=== PATIENT | female | born 1990 | race Caucasian/White ===

== ENCOUNTER 2021-01-26 12:05 | Emergency (ER) | payer MEDICAID ==
[~2021-01-26] VITALS: Ht 175.3 cm; Wt 68.0 kg
[2021-01-26 14:00] LABS: BASOPHILS # (AUTO) 0.1 /CMM (0.0-0.2); BASOPHILS % (AUTO) 0.6 % (0.0-2.0); EOSINOPHILS % (AUTO) 0.8 % (0.0-6.0); HEMATOCRIT 42 % (33-45); LYMPHOCYTES # (AUTO) 1.7 /CMM (0.8-4.8); LYMPHOCYTES % (AUTO) 19.5 % (20.0-44.0); MEAN CORPUSCULAR HGB CONC 34 g/dl (31.0-36.0); MEAN CORPUSCULAR VOLUME 94 fL (82-100); MONOCYTES # (AUTO) 0.5 /CMM (0.1-1.30); MONOCYTES % (AUTO) 5.1 % (2.0-12.0); NEUTROPHILS # (AUTO) 6.6 /CMM (1.8-8.9); PLATELET COUNT (AUTO) 268 /CMM (150-450); RED BLOOD CELL COUNT(AUTO) 4.45 MIL/uL (4.0-5.2); WHITE BLOOD COUNT (AUTO) 8.9 K/uL (4.3-11.0)
[2021-01-26 14:10] LABS: CALCIUM, SERUM 8.8 mg/dL (8.5-10.1); CARBON DIOXIDE 27 mmol/L (21-32); CHLORIDE 101 mmol/L (98-107); CREATININE 0.6 mg/dL (0.6-1.3); GLUCOSE 89 mg/dL (74-106); POTASSIUM 4.1 mmol/L (3.5-5.1); SODIUM SERUM 137 mmol/L (136-145); UREA NITROGEN, BLOOD 16 mg/dL (7-18)
[2021-01-26 14:13] LABS: BILIRUBIN,URINE Negative (NEGATIVE); COLOR,URINE YELLOW (YELLOW); LEUKOCYTE ESTERASE ,URINE Small (NEGATIVE); NITRITE, URINE Negative (NEGATIVE); PH,URINE 5.5 (5.0-8.0); PROTEIN,URINE Negative (NEGATIVE); UGLUCOSE Negative (NEGATIVE); UROBILINOGEN,URINE 0.2 EU/dL (0.2)
[2021-01-26 14:17] LABS: ACETAMINOPHEN 0 ug/ml (10-30); ALANINE AMINOTRANSFERASE 15 U/L (12-78); ALBUMIN 3.9 g/dL (3.4-5.0); ALCOHOL, BLOOD < 3 mg/dL (0-0); ALKALINE PHOSPHATASE 57 U/L (46-116); ASPARTATE AMINOTRANSFERASE 14 U/L (15-37); BILIRUBIN,DIRECT 0.1 mg/dL (0.0-0.2); BILIRUBIN,TOTAL 0.3 mg/dL (0.2-1.0); TOTAL PROTEIN, SERUM 7.5 g/dL (6.4-8.2)
[2021-01-26 14:20] LABS: BACTERIA,URINE Moderate /HPF (None Seen); MUCUS,URINE Few /LPF (None Seen); SQUAMOUS EPITHELIAL CELL,UR Few /HPF (None Seen)
[2021-01-26] MEDS ORDERED: CEPHALEXIN MONOHYDRATE 500 MG CAPSULE PO ONE ×2 (15:00→15:21)
--- NOTE | 2021-01-26 15:30 | NUR ---
covid swab done and sent to the lab
[2021-01-26] MEDS ORDERED: LORAZEPAM 1 MG TABLET PO ONE (18:30)
[2021-01-26] MEDS ORDERED: LORAZEPAM 1 MG TABLET ONE (18:41)
[2021-01-26 19:06] VITALS: BP 127/85
[2021-01-26] MEDS ORDERED: CEPH500C2 PO (19:06)
--- NOTE | 2021-01-26 19:06 | NUR ---
Patient discharged to home in stable condition. Written and verbal after care instructions given. Patient verbalizes understanding of instruction. The patient left ER in stable condition accompanied by her uncle.
== END 2021-01-26 19:06 | disposition home or self-care (01) ==
LOC: ER 12:08
DX: R45.851 Suicidal ideations (principal); F31.9 Bipolar disorder, unspecified; N39.0 Urinary tract infection, site not specified; F41.9 Anxiety disorder, unspecified; Z91.040 Latex allergy status; J45.909 Unspecified asthma, uncomplicated; Z59.0 Homelessness
CPT/HCPCS: 36415; 80048; 80076; 80299; 80307; 80320; 81001; 84703; 85025; 87086; 87426; 99285; C9803; G0480

== ENCOUNTER 2021-02-10 17:45 | Emergency (ER) | payer BC, MEDICAID ==
[~2021-02-10] VITALS: Ht 175.3 cm; Wt 63.5 kg
[~2021-02-10 17:45] MED LIST: CEPH500C2 PO
--- NOTE | 2021-02-10 18:32 | NUR ---
BIB [facility],C/O FEELING SUICIDAL BY CUTTING HERSELF. PT AAOX4, VSS. RR EVEN & UNLABORED. DENIES CP, SOB, DIZZINESS, N/V AT THIS TIME. DR. NOYOLA AT BS FOR EVAL. SITTER AT BS & WILL CONT TO MONITOR.
[2021-02-10 18:52] LABS: BASOPHILS # (AUTO) 0.1 /CMM (0.0-0.2); BASOPHILS % (AUTO) 0.7 % (0.0-2.0); EOSINOPHILS % (AUTO) 0.9 % (0.0-6.0); HEMATOCRIT 41 % (33-45); HEMOGLOBIN 13.6 g/dL (11.5-14.8); LYMPHOCYTES # (AUTO) 2.5 /CMM (0.8-4.8); LYMPHOCYTES % (AUTO) 27.8 % (20.0-44.0); MEAN CORPUSCULAR HGB CONC 34 g/dl (31.0-36.0); MEAN CORPUSCULAR VOLUME 91 fL (82-100); MONOCYTES # (AUTO) 0.6 /CMM (0.1-1.30); MONOCYTES % (AUTO) 6.6 % (2.0-12.0); NEUTROPHILS # (AUTO) 5.7 /CMM (1.8-8.9); PLATELET COUNT (AUTO) 317 /CMM (150-450); RED BLOOD CELL COUNT(AUTO) 4.44 MIL/uL (4.0-5.2); WHITE BLOOD COUNT (AUTO) 8.9 K/uL (4.3-11.0)
[2021-02-10 19:04] LABS: BILIRUBIN,URINE Negative (NEGATIVE); COLOR,URINE YELLOW (YELLOW); LEUKOCYTE ESTERASE ,URINE Small (NEGATIVE); NITRITE, URINE Negative (NEGATIVE); PROTEIN,URINE Negative (NEGATIVE); UGLUCOSE Negative (NEGATIVE); UROBILINOGEN,URINE 0.2 EU/dL (0.2)
[2021-02-10 19:08] LABS: CALCIUM, SERUM 9.1 mg/dL (8.5-10.1); CARBON DIOXIDE 26 mmol/L (21-32); CHLORIDE 102 mmol/L (98-107); CREATININE 0.6 mg/dL (0.6-1.3); GLUCOSE 102 mg/dL (74-106); POTASSIUM 4.1 mmol/L (3.5-5.1); SODIUM SERUM 138 mmol/L (136-145); UREA NITROGEN, BLOOD 22 mg/dL (7-18)
[2021-02-10 19:08] LABS: BACTERIA,URINE 1+ /HPF (None Seen); RBC,URINE NONE SEEN /HPF (0-2); SQUAMOUS EPITHELIAL CELL,UR Few /HPF (None Seen)
[2021-02-10 19:13] LABS: ACETAMINOPHEN < 2 ug/ml (10-30); ALANINE AMINOTRANSFERASE 18 U/L (12-78); ALBUMIN 4.1 g/dL (3.4-5.0); ALCOHOL, BLOOD < 3 mg/dL (0-0); ALKALINE PHOSPHATASE 54 U/L (46-116); ASPARTATE AMINOTRANSFERASE 15 U/L (15-37); BILIRUBIN,DIRECT 0.1 mg/dL (0.0-0.2); BILIRUBIN,TOTAL 0.2 mg/dL (0.2-1.0); TOTAL PROTEIN, SERUM 7.9 g/dL (6.4-8.2)
--- NOTE | 2021-02-10 19:19 | NUR ---
SOPHIAID SWABBED, SENT TO LAB.
--- NOTE | 2021-02-10 19:51 | NUR ---
[place] ROUGH ROUNDER SPEAKING TO PTShahbaz
[2021-02-10] MEDS ORDERED: OLANZAPINE 5 MG TABLET PO ONE (20:00)
[2021-02-10] MEDS ORDERED: OLANZAPINE 5 MG TABLET ONE (20:03)
--- NOTE | 2021-02-10 20:14 | NUR ---
CALLED POISON CONTROL: SPOKE TO PETER RECOMMENDATION: WATCH FOR SEDATION/TACHY/ANTICHOLINERGIC EFFECTS ORDER EKG, ASA AND TYLENOL LEVEL DR. NOYOLA MADE AWARE
[2021-02-10] MEDS ORDERED: LORAZEPAM 1 MG TABLET ONE (21:29)
[2021-02-10] MEDS ORDERED: LORAZEPAM 1 MG TABLET PO ONE (21:30)
--- NOTE | 2021-02-10 23:23 | NUR ---
RESTING COMFORTABLY. VSS.
--- NOTE | 2021-02-11 01:27 | NUR ---
PT RESTING IN BED, VSS.
--- NOTE | 2021-02-11 02:31 | NUR ---
PT AMBULATED TO THE NURSING STATION, ASKED FOR FOOD.
--- NOTE | 2021-02-11 03:01 | NUR ---
PT PROVIDED WITH FOOD. VSS.
--- NOTE | 2021-02-11 06:44 | NUR ---
PT ASLEEP, VSS.
--- NOTE | 2021-02-11 09:43 | NUR ---
PT AAOX4, VSS. RR EVEN & UNLABORED. CALM & COOPERATIVE. PT EATING BREAKFAST, NAD NOTED AT THIS TIME. WILL CONT TO MONITOR. SITTER AT BS.
--- NOTE | 2021-02-11 09:49 | NUR ---
PT TOOK OWN MEDS (ABILIFY & ZOLOFT), OK'D BY DR. CARPENTER.
[2021-02-11] MEDS ORDERED: HYDR-500 PO (10:09)
[2021-02-11] MEDS ORDERED: HYDR50TA61 PO (10:09)
[2021-02-11] MEDS ORDERED: SERT25TA PO (10:09)
[2021-02-11] MEDS ORDERED: ARIP10TA9 PO (10:09)
[2021-02-11] MEDS ORDERED: SULF1TAB48 PO (10:21)
--- NOTE | 2021-02-11 11:02 | NUR ---
SPOKE TO YAN, HUMAN RESOURCES RECEPTIONIST & STS THAT SHE WILL CALL [facility] FOR ADMISSION.
[2021-02-11] MEDS ORDERED: LORAZEPAM 1 MG TABLET PO ONE (12:00)
[2021-02-11] MEDS ORDERED: LORAZEPAM 1 MG TABLET ONE (13:24)
--- NOTE | 2021-02-11 13:30 | NUR ---
MEDICATED FOR ANXIETY, PT CANDACE WELL. SITTER AT BS
--- NOTE | 2021-02-11 19:11 | NUR ---
PT AAOX4, VSS. RR EVEN & UNLABORED. CALM & COOPERATIVE. SITTER AT BEDSIDE FOR SAFETY. WILL CONTINUE TO MONITOR PT
[2021-02-11] MEDS ORDERED: ZIPRASIDONE 20 MG CAPSULE PO SCH (20:30)
[2021-02-11] MEDS ORDERED: SULFAMETH/TRIMETH 800/160 MG 1 UDTAB TABLET ONE (20:52)
[2021-02-11] MEDS ORDERED: ZIPRASIDONE 20 MG CAPSULE ONE (20:57)
[2021-02-11] MEDS ORDERED: SULFAMETH/TRIMETH 800/160 MG 1 UDTAB TABLET PO ONE (21:00)
--- NOTE | 2021-02-12 02:15 | NUR ---
PT RESTING COMFORTABLY IN BED. VSS. WILL CONTINUE TO MONITOR PT
--- NOTE | 2021-02-12 04:40 | NUR ---
SITTER AT BEDSIDE FOR SAFETY. PT RESTING COMFORTABLY IN BED. VSS. WILL CONTINUE TO MONITOR PT
[2021-02-12 07:51] VITALS: BP 119/58
--- NOTE | 2021-02-12 07:52 | NUR ---
ASSESSED PT ON BED AWAKE AND ALERT, NOT IN RESPIRATORY DISTRESS, V/S STABLE, KEPT RESTED AND COMFORTABLE. AWAITING INFO FOR PSYCH TRANSFER.
--- NOTE | 2021-02-12 08:51 | NUR ---
AT BEDSIDE FOR EVAL.
[2021-02-12] MEDS ORDERED: BENZTROPINE MESYLATE (1 MG) 1 MG TABLET PO SCH (09:30)
[2021-02-12] MEDS ORDERED: BENZTROPINE MESYLATE (1 MG) 1 MG TABLET ONE (09:37)
[2021-02-12] MEDS ORDERED: risperiDONE 1 MG TABLET ONE ×2 (09:37→10:14)
[2021-02-12] MEDS: LITHIUM CARBONATE (300 MG CAP) 300 MG CAPSULE PO SCH ×2 (09:48→13:10)
[2021-02-12] MEDS: risperiDONE 0.25 MG TABLET PO SCH ×2 (09:48→13:10)
--- NOTE | 2021-02-12 11:55 | NUR ---
[place] CRISIS PATHOLOGY ASSISTANT AT BEDSIDE FOR EVAL.
--- NOTE | 2021-02-12 13:02 | NUR ---
Salesperson [employer] note: DAVID faxed clinicals to epic application coordinator, Zen [phone] who stated that he may be able to find a bed for the patient at [facility]-[address] [id number]; and provided DAVID with contact information for Shefali who would be verifying if the patient qualifies for this facility. DAVID spoke to Shefali who asked DAVID about the patient's insurance coverage and stated that she will contact this SW shortly with an update. DAVID will continue to follow up.
--- NOTE | 2021-02-12 13:19 | NUR ---
[facility] intake accepted at [facility]ash[facility] [address] [address] [phone] [address].
--- NOTE | 2021-02-12 13:32 | NUR ---
TRANSPORT CALLED [facility] ETA IS 90 MINS AT 1500 PER GRACE.
--- NOTE | 2021-02-12 15:32 | NUR ---
REPORT GIVEN TO TECHNOLOGY STRATEGIST.
--- NOTE | 2021-02-12 15:40 | NUR ---
UNABLE TO DEPORT MEDITECH ERROR.
== END 2021-02-12 14:39 ==
LOC: ER 17:46
DX: F31.5 Bipolar disorder, current episode depressed, severe, with psychotic features (principal); J45.909 Unspecified asthma, uncomplicated; Z20.822 Contact with and (suspected) exposure to COVID-19; Z91.040 Latex allergy status; R82.81 Pyuria; R94.31 Abnormal electrocardiogram [ECG] [EKG]
CPT/HCPCS: 36415; 80048; 80076; 80299; 80307; 80320; 81001; 84702; 85025; 87086; 87426; 93005; 99285; C9803; G0480